=== PATIENT | female | born 1945 | race Caucasian/White ===

== ENCOUNTER 2019-04-17 08:15 | Day surgery (SDC) | payer MEDICARE, BC ==
[~2019-04-17] VITALS: Ht 160 cm; Wt 70.1 kg
[~2019-04-17 08:15] MED LIST: ANTI1CAP2 PO; DOCU250C4 PO; DOXY100C43 PO; FAMO40TA7 PO; HYDR28CR14 TOP; LOSA50TA3 PO; MOME13HF2 INH; PANT-47 PO; TRIA1TAB5 PO
[2019-04-17] MEDS ORDERED: HYDR-4069 PO (08:54)
[2019-04-17] MEDS ORDERED: BISO5TAB PO (08:54)
[2019-04-17] MEDS ORDERED: NITR0.4T51 SL (08:54)
[2019-04-17 09:26] LABS: BASOPHILS % (AUTO) 0.9 % (0-1); EOSINOPHILS # (AUTO) 0.1 X10'3 (0-0.9); EOSINOPHILS % (AUTO) 1.6 % (0-6); HEMATOCRIT 39.9 % (35.0-45.0); HEMOGLOBIN 13.5 g/dl (12.0-16.0); LYMPHOCYTES # (AUTO) 1.6 X10'3 (1.1-4.8); LYMPHOCYTES % (AUTO) 28.9 % (21-51); MEAN CORPUSCULAR HEMOGLOBIN 30.5 PG (27.0-31.0); MEAN CORPUSCULAR HGB CONC 33.9 g/dL (33.0-36.5); MEAN CORPUSCULAR VOLUME 89.9 FL (78-98); MEAN PLATELET VOLUME 9.2 FL (7.4-10.4); MONOCYTES # (AUTO) 0.5 X10'3 (0-0.9); MONOCYTES % (AUTO) 9.2 % (2-12); NEUTROPHILS # (AUTO) 3.4 X10'3 (1.8-7.7); NEUTROPHILS % (AUTO) 59.4 % (42-75); PLATELET COUNT 204 X10'3 (140-440); RED BLOOD COUNT 4.44 X10'6 (4.20-5.60); RED CELL DISTRIBUTION WIDTH 13.4 % (11.5-14.5); WHITE BLOOD COUNT 5.7 X10'3 (4.5-11.0)
[2019-04-17] MEDS ORDERED: clindamycin-Cleocin 900mg/D5W 50 ML IV ONE (09:30)
[2019-04-17] MEDS ORDERED: famotidine 20mg tablet PO ONE (09:30)
[2019-04-17] MEDS ORDERED: ringers solution, lacted 1,000 ML IV SCH (09:30)
[2019-04-17 09:36] LABS: ALANINE AMINOTRANSFERASE 23 U/L (12-78); ALBUMIN 3.4 G/DL (3.4-5.0); ALKALINE PHOSPHATASE 68 IU/L (46-116); ANION GAP 9 (8-16); ASPARTATE AMINO TRANSFERASE 20 U/L (10-37); BILIRUBIN,TOTAL 1.4 MG/DL (0.1-1.0); BLOOD UREA NITROGEN 23 MG/DL (7-18); CALCIUM 9.4 MG/DL (8.5-10.1); CHLORIDE 108 MMOL/L (99-107); CREATININE 0.92 MG/DL (0.40-0.90); GLUCOSE 129 MG/DL (70-104); POTASSIUM 4.2 MMOL/L (3.5-5.1); SODIUM 141 MMOL/L (135-145); TOTAL CARBON DIOXIDE 24.1 MMOL/L (24-32); TOTAL PROTEIN 6.9 G/DL (6.4-8.2); eGFR 60 ML/MIN
[2019-04-17 10:39] VITALS: BP 191/80
[2019-04-17 10:45] VITALS: BP 191/80
[2019-04-17] MEDS ORDERED: BUPIVAcaine/PF 2.5mg/ml (0.25%) 10ml vial ONE (11:49)
[2019-04-17] MEDS ORDERED: LIDOcaine 1% 30ml preserv. free vial ONE (11:59)
[2019-04-17] MEDS ORDERED: midazolam 2 mg/2 ml injection ONE (12:42)
[2019-04-17] MEDS ORDERED: fentaNYL/PF 50MCG/1 ML 2ML syringe ONE (12:42)
[2019-04-17] MEDS ORDERED: propofol inj 20 ML IV ONE (12:57)
[2019-04-17 13:10] VITALS: BP 197/99
--- NOTE | 2019-04-17 13:10 | NUR ---
Received from OR via [facility] , accompanied by Anesthesiologist LONA and report given by Anesthesiolgist. PATIENT WITH 20G PIV IN LEFT WRIST AREA. DENIES PAIN. RIGHT TEMPORAL DRESSING IS CDI. NO DRAINAGE PRESENT. VSS AT THIS TIME. Addendum: 04/17/19 at 1332 by Graham Joseph RN, RN Amended: Links added.
[2019-04-17 13:20] VITALS: BP 182/83
[2019-04-17 13:30] VITALS: BP 174/63
[2019-04-17 13:40] VITALS: BP 185/73
--- NOTE | 2019-04-17 13:50 | NUR ---
ALL DC CRITERIA HAS BEEN MET. IV TAKEN OUT WITHOUT COMPLICATIONS. ALL INSTRUCTIONS COVERED AND ALL QUESTIONS ANSWERED. DRESSINGS CDI. OUT VIA WHEELCHAIR TO PERSONAL VEHICLE WHERE PATIENT WAS SECURED IN AND DRIVEN HOME BY FAMILY. Addendum: 04/17/19 at 1428 by Graham Joseph RN, RN Amended: Links added.
== END 2019-04-17 13:50 | disposition home or self-care (01) ==
LOC: PAS 08:15
PROVIDERS: ATTEND Surgery
DX: Z03.89 Encounter for observation for other suspected diseases and conditions ruled out (principal); J45.909 Unspecified asthma, uncomplicated; I10 Essential (primary) hypertension; E11.9 Type 2 diabetes mellitus without complications; K21.9 Gastro-esophageal reflux disease without esophagitis
CPT/HCPCS: 36415; 37609; 80053; 85025; 93005; A6255; A6258; J2001; J2250; J2704; J3010; J3490; 88305; 88313; A4215; A4618; A6402; A7000; J7120

== ENCOUNTER 2019-08-09 17:33 | Emergency (ER) | payer MEDICARE, BC ==
[~2019-08-09] VITALS: Ht 160 cm; Wt 69.0 kg
[~2019-08-09 17:33] MED LIST changes: -ANTI1CAP2 PO; +BISO5TAB PO; +DOCU-329 PO; -DOCU250C4 PO; +HYDR-4069 PO; +NITR0.4T51 SL; -PANT-47 PO; -TRIA1TAB5 PO
[2019-08-09] MEDS ORDERED: cloNIDine 0.1 mg tablet PO ONE (18:05)
[2019-08-09] MEDS ORDERED: diphenhydrAMINE 50 mg/ml inj IM ONE (18:05)
[2019-08-09] MEDS ORDERED: metoclopramide 5 mg/ml inj IM ONE (18:05)
[2019-08-09] MEDS ORDERED: LORazepam 0.5 MG tablet PO STA (18:05)
[2019-08-09] MEDS ORDERED: AMLO2.5T2 PO (18:08)
[2019-08-09 19:22] VITALS: BP 192/90
== END 2019-08-09 19:23 | disposition home or self-care (01) ==
LOC: ER 17:34
DX: R51 Headache (principal); E78.00 Pure hypercholesterolemia, unspecified; I10 Essential (primary) hypertension; J45.909 Unspecified asthma, uncomplicated; E11.9 Type 2 diabetes mellitus without complications; G89.29 Other chronic pain; Z90.49 Acquired absence of other specified parts of digestive tract; Z90.710 Acquired absence of both cervix and uterus; Z98.890 Other specified postprocedural states; Z88.0 Allergy status to penicillin; Z88.2 Allergy status to sulfonamides; Z88.1 Allergy status to other antibiotic agents; Z88.8 Allergy status to other drugs, medicaments and biological substances; Z79.899 Other long term (current) drug therapy
CPT/HCPCS: 96372; 99283; J1200; J2765

== ENCOUNTER 2019-09-25 13:37 | Emergency (ER) | payer MEDICARE, BC ==
[~2019-09-25] VITALS: Ht 160 cm; Wt 69.9 kg
[~2019-09-25 13:37] MED LIST changes: +AMLO2.5T2 PO; -DOXY100C43 PO; -HYDR-4069 PO; -HYDR28CR14 TOP
[2019-09-25 13:54] VITALS: BP 194/106
== END 2019-09-25 16:38 | disposition left against medical advice (07) ==
LOC: ER 13:38
DX: I10 Essential (primary) hypertension (principal); Z53.21 Procedure and treatment not carried out due to patient leaving prior to being seen by health care provider